=== PATIENT | female | born 1975 | race Caucasian/White ===

== ENCOUNTER 2018-03-10 12:49 | Day surgery (SDC) | payer OTHER ==
[~2018-03-10] VITALS: Ht 162.6 cm; Wt 55.8 kg
[2018-03-10 13:17] VITALS: BP 127/74; PULSE 62; TEMP 99.3
[2018-03-10] MEDS ORDERED: PLAQUENIL 200M200 MG PO (13:25)
[2018-03-10] MEDS ORDERED: PRIL40 (13:25)
[2018-03-10] MEDS ORDERED: KLONOPIN 1MG1 MG PO (13:26)
[2018-03-10] MEDS ORDERED: CHANTIX START M1 TAB PO (13:26)
[2018-03-10 14:30] VITALS: BP 118/62; PULSE 70; TEMP 98.8
[2018-03-10 14:45] VITALS: BP 118/69; PULSE 62
[2018-03-10 15:00] VITALS: BP 122/78; PULSE 64
[2018-03-10 15:15] VITALS: BP 120/70; PULSE 62; TEMP 98.8
== END 2018-03-10 15:25 | disposition home or self-care (01) ==
LOC: SDCO 12:49
DX: K21.0 Gastro-esophageal reflux disease with esophagitis (principal); K44.9 Diaphragmatic hernia without obstruction or gangrene; D64.9 Anemia, unspecified; Z80.0 Family history of malignant neoplasm of digestive organs; Z88.0 Allergy status to penicillin
CPT/HCPCS: J2250; J3010; J7030

== ENCOUNTER 2018-03-31 11:01 | Day surgery (SDC) | payer OTHER ==
[~2018-03-31] VITALS: Ht 162.6 cm; Wt 56.2 kg
[2018-03-31] VITALS (9 sets, daily range): BP systolic 99–178; BP diastolic 58–78; PULSE 54–69; TEMP 97.9–98.3
[~2018-03-31 11:01] MED LIST: CHANTIX START M1 TAB PO; KLONOPIN 1MG1 MG PO; PLAQUENIL 200M200 MG PO; PRIL40 PO
[2018-03-31] MEDS ORDERED: PERCOCET 325 MG1 TA2 PO (13:44)
[2018-03-31] MEDS ORDERED: MOTRIN 800800 MG/TAB PO (13:44)
[2018-04-01] VITALS: BP 98/51; PULSE 58; TEMP 98.4
[2018-04-01 04:00] VITALS: BP 95/48; PULSE 87; TEMP 98.3
[2018-04-01 06:45] VITALS: BP 86/43; PULSE 66; TEMP 98.2
[2018-04-01 12:15] VITALS: BP 92/47; PULSE 82; TEMP 98.3
== END 2018-04-01 13:50 | disposition home or self-care (01) ==
LOC: SDCO 11:01 → OB 11:01 → SDCO 13:00 → OB 14:55 → SDCO 04-01 13:50
DX: N80.0 Endometriosis of uterus (principal); N83.8 Other noninflammatory disorders of ovary, fallopian tube and broad ligament; N84.1 Polyp of cervix uteri; N92.1 Excessive and frequent menstruation with irregular cycle; N73.6 Female pelvic peritoneal adhesions (postinfective); F17.210 Nicotine dependence, cigarettes, uncomplicated; K21.9 Gastro-esophageal reflux disease without esophagitis; K44.9 Diaphragmatic hernia without obstruction or gangrene; Z88.1 Allergy status to other antibiotic agents; Z80.41 Family history of malignant neoplasm of ovary; Z80.3 Family history of malignant neoplasm of breast; Z83.3 Family history of diabetes mellitus; Z82.49 Family history of ischemic heart disease and other diseases of the circulatory system; Z82.3 Family history of stroke
CPT/HCPCS: OP; A4314; J0690; J1720; J1885; J2310; J2405; J2550; J2704; J2710; J3010; J7120